=== PATIENT | male | born 1965 | race Caucasian/White ===

== ENCOUNTER 2017-02-07 13:34 | Emergency (ER) | payer OTHER ==
[~2017-02-07] VITALS: Ht 203.2 cm; Wt 124.7 kg
[2017-02-07 16:42] LABS: ABSOLUTE NEUTROPHILS 4.3 thou/uL (1.4-8.2); BASOPHILS 1.2 % (0.0-2.0); EOSINOPHILS 3.3 % (0.0-3.0); HEMATOCRIT 34.8 % (42.0-52.0); HEMOGLOBIN 11.5 gm/dL (14.0-18.0); LYMPHOCYTES 15.6 % (24.0-44.0); MCH 29.1 pg (26.0-34.0); MCV 88.1 fL (80.0-100.0); MONOCYTES 10.7 % (1.0-8.0); PLATELET COUNT 197 thou/uL (150-400); POLYS 69.2 % (36.0-66.0); RBC 3.95 mil/uL (4.50-6.00); RDW 13.3 % (10.5-14.5); WBC 6.2 thou/uL (4.0-11.0)
[2017-02-07 16:46] LABS: MANUAL DIFF NO
[2017-02-07 16:50] LABS: CALCIUM 8.7 mg/dL (8.5-10.1); CREATININE 0.7 mg/dL (0.7-1.3); POTASSIUM 3.8 mmol/L (3.5-5.1)
[2017-02-07] MEDS ORDERED: BACTRIM DS TAB1 EACH PO (17:31)
[2017-02-07] MEDS ORDERED: IBUPROFEN 600600 M1 PO (17:31)
[2017-02-07 17:59] VITALS: BP 149/79
== END 2017-02-07 18:37 | disposition home or self-care (01) ==
LOC: ER 13:34
PROVIDERS: Nurse Practitioner
DX: M54.5 Low back pain (principal); L03.116 Cellulitis of left lower limb; L03.115 Cellulitis of right lower limb; F31.9 Bipolar disorder, unspecified; E11.9 Type 2 diabetes mellitus without complications; I10 Essential (primary) hypertension

== ENCOUNTER 2017-02-08 15:09 | Emergency (ER) | payer OTHER ==
[~2017-02-08] VITALS: Ht 203.2 cm; Wt 170.1 kg
[~2017-02-08 15:09] MED LIST: BACTRIM DS TAB1 EACH PO; IBUPROFEN 600600 M1 PO
[2017-02-08 16:10] VITALS: BP 157/79
== END 2017-02-08 16:10 | disposition home or self-care (01) ==
LOC: ER 15:09
DX: G89.29 Other chronic pain (principal); S81.802A Unspecified open wound, left lower leg, initial encounter; S81.801A Unspecified open wound, right lower leg, initial encounter; E11.9 Type 2 diabetes mellitus without complications; F31.9 Bipolar disorder, unspecified; I10 Essential (primary) hypertension; V09.20XA Pedestrian injured in traffic accident involving unspecified motor vehicles, initial encounter; Y93.89 Activity, other specified; Y92.89 Other specified places as the place of occurrence of the external cause; Y99.8 Other external cause status